=== PATIENT | female | born 1995 | race Caucasian/White ===

== ENCOUNTER 2017-10-06 14:25 | Emergency (ER) | payer OTHER ==
[~2017-10-06] VITALS: Ht 165.1 cm; Wt 72.6 kg
[2017-10-06 15:28] VITALS: BP 129/85
--- NOTE | 2017-10-06 15:42 | ED EENT ---
History of Present Illness General Chief Complaint: Oral/Throat Problems Stated Complaint: FEVER/V/D Nursing Triage Note: Patient advises she was seen approximately 10 days ago at urgent care for a sore throat. She advised they swabbed her throat for strep but that it was negative. They treated her with amoxicillin x 10 days. She advises she was feeling better x 2 days and then had reoccurance of symptoms. She is now febrile 101.7 and states she has been unable to eat secondary to swollen tonsils. Source: patient, family Exam Limitations: no limitations History of Present Illness Date Seen by Provider: Oct 06, 2017 Time Seen by Provider: 15:40 Initial Comments To ER with c/o sore throat and fevers. 11 days ago she was seen at [facility] walk in clinic for these same symptoms and tested negative for strep but was treated empirically with 10 days of amoxicillin. She finished that yesterday and was feeling better but yesterday evening sore throat became worse , fevers recurred. no cough. Timing/Duration: abrupt Severity: moderate Location: mouth Associated Symptoms: fever Allergies and Home Medications Allergies Coded Allergies: No Known Drug Allergies (Unverified , 10/06/17) Patient Home Medication List Home Medication List Reviewed: Yes Review of Systems Constitutional: see HPI, chills, fever Eyes: No Symptoms Reported Ears: No Symptoms Reported Nose: no symptoms reported Mouth: no symptoms reported Throat: see HPI, pain, swelling Respiratory: no symptoms reported Cardiovascular: no symptoms reported Musculoskeletal: no symptoms reported Past Kugpjbw-Pmhwbb-Ojyitm Hx Patient Social History Alcohol Use: Denies Use Recreational Drug Use: No Smoking Status: Never a Smoker 2nd Hand Smoke Exposure: No Recent Foreign Travel: No Contact w/Someone Who Travel: No Recent Infectious Disease Expo: No Recent Hopitalizations: No Physical Abuse: No Sexual Abuse: No Seasonal Allergies Seasonal Allergies: No Past Medical History Surgeries: Yes (dental-wisdom teeth) Respiratory: No Cardiac: No Neurological: No Reproductive Disorders: No Sexually Transmitted Disease: No Genitourinary: No Gastrointestinal: No Musculoskeletal: No Endocrine: No HEENT: No Cancer: No Psychosocial: No Nursing Suicide Risk Score: 0 Blood Disorders: No Physical Exam Vital Signs Vital Signs - First Documented 10/06/17 15:28 Temp 101.7 Pulse 90 Resp 14 B/P (MAP) 129/85 (100) Pulse Ox 98 O2 Delivery Room Air General Appearance: WD/WN, no apparent distress Eyes: bilateral eye normal inspection, bilateral eye PERRL, bilateral eye EOMI Ears: bilateral ear auricle normal, bilateral ear canal normal, bilateral ear TM normal Mouth/Throat: normal mouth inspection, tonsillar exudate, tonsillar swelling; No trismus, No uvula swelling; other (pharyngeal erythema. No uvular deviation to suggest peritonsillar abscess) Neck: non-tender, full range of motion Respiratory: no respiratory distress, no accessory muscle use Gastrointestinal: normal bowel sounds, non tender Neurologic/Psychiatric: alert, normal mood/affect, oriented x 3 Skin: normal color, warm/dry Progress/Results/Core Measures Lab Results Laboratory Tests Test 10/06/17 15:26 10/06/17 15:42 Range/Units Group A Streptococcus Screen NEGATIVE NEGATIVE White Blood Count 18.9 H 4.3-11.0 10^3/uL Red Blood Count 4.07 L 4.35-5.85 10^6/uL Hemoglobin 12.9 11.5-16.0 G/DL Hematocrit 38 35-52 % Mean Corpuscular Volume 93 80-99 FL Mean Corpuscular Hemoglobin 32 25-34 PG Mean Corpuscular Hemoglobin Concent 34 32-36 G/DL Red Cell Distribution Width 12.9 10.0-14.5 % Platelet Count 403 H 130-400 10^3/uL Mean Platelet Volume 9.2 7.4-10.4 FL Neutrophils (%) (Auto) 82 H 42-75 % Lymphocytes (%) (Auto) 10 L 12-44 % Monocytes (%) (Auto) 8 0-12 % Eosinophils (%) (Auto) 0 0-10 % Basophils (%) (Auto) 0 0-10 % Neutrophils # (Auto) 15.5 H 1.8-7.8 X 10^3 Lymphocytes # (Auto) 1.9 1.0-4.0 X 10^3 Monocytes # (Auto) 1.5 H 0.0-1.0 X 10^3 Eosinophils # (Auto) 0.0 0.0-0.3 10^3/uL Basophils # (Auto) 0.0 0.0-0.1 10^3/uL Neutrophils % (Manual) 75 % Lymphocytes % (Manual) 16 % Monocytes % (Manual) 3 % Eosinophils % (Manual) 0 % Basophils % (Manual) 0 % Band Neutrophils 6 % Blood Morphology Comment NORMAL Monoscreen NEGATIVE NEGATIVE Micro Results Microbiology 10/06/17 Influenza Types A,B Antigen (OPAL) - Final, Complete My Orders Orders - DENISSE GUILLEN APRN Cbc With Automated Diff (10/06/17 15:36) Monotest (10/06/17 15:36) Influenza A And B Antigens (10/06/17 15:36) Saline Lock/Iv-Start (10/06/17 15:36) Rapid Strep A Screen (10/06/17 15:36) Dexamethasone Injection (Decadron Inject (10/06/17 15:45) Ibuprofen Tablet (Motrin Tablet) (10/06/17 15:45) Ns Iv 1000 Ml (Sodium Chloride 0.9%) (10/06/17 15:45) Manual Differential (10/06/17 15:42) Ct Neck (Soft Tissue) W (10/06/17 16:00) Medications Given in ED Current Medications Medications Dose Ordered Sig/Bart Route Start Time Stop Time Status Last Admin Dose Admin Dexamethasone Sodium Phosphate 10 mg ONCE ONCE IM 10/06/17 15:45 10/06/17 15:46 DC 10/06/17 16:32 10 MG Ibuprofen 800 mg ONCE ONCE PO 10/06/17 15:45 10/06/17 15:46 DC 10/06/17 16:29 800 MG Iohexol 100 ml ONCE ONCE IV 10/06/17 16:45 10/06/17 16:46 DC 10/06/17 16:46 100 ML Sodium Chloride 80 ml ONCE ONCE IV 10/06/17 16:45 10/06/17 16:46 DC 10/06/17 16:46 80 ML Vital Signs/I&O 10/06/17 10/06/17 15:28 16:29 Temp 101.7 101.7 Pulse 90 Resp 14 B/P (MAP) 129/85 (100) Pulse Ox 98 O2 Delivery Room Air Blood Pressure Mean: 100 Departure Impression Primary Impression: Tonsillitis Additional Impression: Thrush Disposition: 01 HOME, SELF-CARE Condition: Stable Departure-Patient Inst. Decision time for Depature: 19:56 Referrals: [facility] (PCP/Family) Primary Care Physician Patient Instructions: Thrush Add. Discharge Instructions: 1. Return to the emergency room for any concerns 2. [facility] preferably before Wednesday. Call tomorrow for an appointment time. Start the new antibiotic in the steroids as directed. All discharge instructions reviewed with patient and/or family. Voiced understanding. Scripts Prednisone (Prednisone) 20 Mg Tab 40 MG PO DAILY, #6 TAB Prov: DENISSE GUILLEN APRN 10/06/17 Cefuroxime Axetil (Cefuroxime) 500 Mg Tablet 500 MG PO BID, #14 TAB Prov: DENISSE GUILLEN APRN 10/06/17 Work/School Note: Work Release Form Date Seen in the Emergency Department: Oct 06, 2017 Return to Work: Oct 09, 2017 Copy Copies To 1: FREDA SAEED PETER J APRN Oct 06, 2017 15:42
[2017-10-06] MEDS ORDERED: NS IV 1000 ML 1,000 ML IV SCH (15:45)
[2017-10-06] MEDS ORDERED: DEXAMETHASONE 10 MG/ML (DECADRON) 1 ML VIAL IM ONE (15:45)
[2017-10-06] MEDS ORDERED: IBUPROFEN 800 MG (MOTRIN) TAB PO ONE (15:45)
[2017-10-06 15:50] LABS: BASOPHILS % (AUTO) 0 % (0-10); EOSINOPHILS % (AUTO) 0 % (0-10); HEMATOCRIT 38 % (35-52); HEMOGLOBIN 12.9 G/DL (11.5-16.0); LYMPHOCYTES # (AUTO) 1.9 X 10^3 (1.0-4.0); LYMPHOCYTES % (AUTO) 10 % (12-44); MEAN CORPUSCULAR HEMOGLOBIN 32 PG (25-34); MEAN CORPUSCULAR HGB CONC 34 G/DL (32-36); MEAN CORPUSCULAR VOLUME 93 FL (80-99); MEAN PLATELET VOLUME 9.2 FL (7.4-10.4); MONOCYTES # (AUTO) 1.5 X 10^3 (0.0-1.0); MONOCYTES % (AUTO) 8 % (0-12); NEUTROPHILS # (AUTO) 15.5 X 10^3 (1.8-7.8); NEUTROPHILS % (AUTO) 82 % (42-75); PLATELET COUNT 403 10^3/uL (130-400); RED BLOOD COUNT 4.07 10^6/uL (4.35-5.85); RED CELL DISTRIBUTION WIDTH 12.9 % (10.0-14.5); WHITE BLOOD COUNT 18.9 10^3/uL (4.3-11.0)
[2017-10-06 16:06] LABS: BAND NEUTROPHILS 6 %; BASOPHILS % (MANUAL) 0 %; EOSINOPHILS % (MANUAL) 0 %; LYMPHOCYTES % (MANUAL) 16 %; MONOCYTES % (MANUAL) 3 %; NEUTROPHILS % (MANUAL) 75 %; RBC MORPH NORMAL
[2017-10-06] MEDS ORDERED: IOHEXOL 350 MG/ML 100 ML (OMNIPAQUE 350) VIAL IV ONE (16:45)
[2017-10-06] MEDS ORDERED: NS 250 ML (IVPB) BAG IV ONE (16:45)
--- NOTE | 2017-10-06 17:15 | Diagnostic Imaging Report ---
PROCEDURE: CT neck soft tissue with contrast. TECHNIQUE: Multiple contiguous axial images were obtained through the neck after the administration of contrast. INDICATION: Sore throat with difficulty eating. COMPARISON: None available. FINDINGS: The palatine tonsils are enlarged and demonstrates mild heterogeneous enhancement compatible with tonsillitis. However, there is no central low attenuation to indicate a drainable tonsillar or peritonsillar abscess. Airway remains patent. The lingual tonsils and adenoids are not significantly enlarged. There are enlarged bilateral cervical lymph nodes which are likely reactive in nature. A level II-A lymph node on the left measures 2.5 x 1.1 cm and a level II-A lymph node on the right measures 1.8 x 1.3 cm. Numerous subcentimeter cervical lymph nodes are also present. No evidence of retropharyngeal abscess. Lung apices are clear. No concerning osseous lesion in the cervical spine. No periodontal disease. Visualized aspects of the brain are unremarkable. Small mucosal retention cyst in the right maxillary sinus. IMPRESSION: 1. Enlarged palatine tonsils are compatible with tonsillitis. No peritonsillar or tonsillar abscess. 2. No airway compromise. 3. Bilateral cervical lymphadenopathy is likely reactive in nature. Dictated by: Dictated on workstation # [id number]
[2017-10-06] MEDS ORDERED: PRD20T PO ×2 (19:57→20:01)
[2017-10-06] MEDS ORDERED: CEFU500T63 PO ×2 (19:57→20:01)
[2017-10-06] MEDS ORDERED: cefTRIAXone INJECTION 1,000 MG in NS (IVPB) 100 ML IV ONE (20:00)
[2017-10-06] MEDS ORDERED: FLUC150T PO (20:01)
[2017-10-06] MEDS ORDERED: FLUCONAZOLE 150 MG TABLET (ED ONLY) ONE (20:05)
[2017-10-06] MEDS ORDERED: fluCOnazole (DIFLUCAN) 100 MG TAB PO SCH (20:15)
== END 2017-10-06 20:36 | disposition home or self-care (01) ==
LOC: EDUNIT# 14:25 → ER 14:28
DX: J03.90 Acute tonsillitis, unspecified (principal); B37.0 Candidal stomatitis; Z98.818 Other dental procedure status
CPT/HCPCS: 36415; 70491; 85007; 85027; 86308; 87430; 87804; 99282

== ENCOUNTER → 2017-12-26 | Outpatient (CLI) | payer BC ==
[~2017-12-26] MED LIST: CEFU500T63 PO; FLUC150T PO; PRD20T PO
== END ==
LOC: LABNPT 15:00
PROVIDERS: ATTEND Nurse Practitioner Family
DX: J03.80 Acute tonsillitis due to other specified organisms (principal); B96.89 Other specified bacterial agents as the cause of diseases classified elsewhere
CPT/HCPCS: 87070